=== PATIENT | female | born 1965 | race Two or more races ===

== ENCOUNTER 2023-09-19 13:41 | Emergency (ER) | payer OTHER ==
[~2023-09-19] VITALS: Ht 157.5 cm; Wt 68.0 kg
[2023-09-19] MEDS ORDERED: HYDROCODONE/APAP 5/325MG TABLET ONE (14:41)
[2023-09-19] MEDS: HYDROCODONE/APAP 5/325MG TABLET PO ONE (14:44)
[2023-09-19] MEDS ORDERED: HYDR-4303 PO (15:11)
[2023-09-19 15:27] VITALS: BP 124/78; TEMP 98.2; O2SAT 98
== END 2023-09-19 15:27 | disposition home or self-care (01) ==
LOC: ER 13:52
DX: M75.31 Calcific tendinitis of right shoulder (principal); M25.511 Pain in right shoulder
CPT/HCPCS: 73030-TC